=== PATIENT | female | born 1975 | race Caucasian/White ===

== ENCOUNTER → 2017-08-14 | Outpatient (REF) | LOC: ZLAB.WCH 14:39 | DX: Z01.89 Encounter for other specified special examinations (principal) ==

== ENCOUNTER 2018-05-24 20:16 | Emergency (ER) | payer SELFPAY ==
[~2018-05-24] VITALS: Ht 175.3 cm; Wt 58.2 kg
[2018-05-24 20:19] VITALS: BP 120/78; TEMP 98
[2018-05-24] MEDS ORDERED: ULTRAM 50MG TAB50 MG PO (20:50)
[2018-05-24] MEDS ORDERED: REXULTI0.5 MG PO (20:52)
[2018-05-24] MEDS ORDERED: BRINTELLIX5 PO (20:52)
[2018-05-24] MEDS ORDERED: PREDNISONE20 MG PO (20:54)
[2018-05-24 21:32] VITALS: PULSE 97
== END 2018-05-24 21:33 | disposition home or self-care (01) ==
LOC: COL.ER 20:16
DX: T78.40XA Allergy, unspecified, initial encounter (principal); R05 Cough; F32.9 Major depressive disorder, single episode, unspecified; Z87.442 Personal history of urinary calculi
CPT/HCPCS: J7512

== ENCOUNTER 2018-08-18 17:58 | Emergency (ER) | payer SELFPAY ==
[~2018-08-18] VITALS: Ht 175.3 cm; Wt 64.5 kg
[~2018-08-18 17:58] MED LIST: BRINTELLIX5 PO; PREDNISONE20 MG PO; REXULTI0.5 MG PO; ULTRAM 50MG TAB50 MG PO
[2018-08-18 18:04] VITALS: BP 141/80; TEMP 98.6
[2018-08-18] MEDS ORDERED: IPRATROPIUM BROM3 M1 IH (20:25)
[2018-08-18 20:35] VITALS: PULSE 121
== END 2018-08-18 21:00 | disposition home or self-care (01) ==
LOC: COL.ER 17:58
DX: J45.909 Unspecified asthma, uncomplicated (principal); F17.200 Nicotine dependence, unspecified, uncomplicated; Z79.52 Long term (current) use of systemic steroids

== ENCOUNTER 2018-08-26 16:37 | Emergency (ER) | payer SELFPAY ==
[~2018-08-26] VITALS: Ht 175.3 cm; Wt 64.5 kg
[~2018-08-26 16:37] MED LIST changes: +IPRATROPIUM BROM3 M1 IH
[2018-08-26 16:41] VITALS: TEMP 98.8
[2018-08-26 17:10] LABS: COLLECTION METHOD CLEAN CATCH
[2018-08-26 17:18] LABS: BASO % 0.2 % (0.0-2.0); EOS # 0.3 (0.0-0.7); EOS % 2.4 % (0-4.0); GRAN # 6.5 (1.4-6.5); GRAN % 58.4 % (42.2-75.2); HEMATOCRIT 43.4 % (37.0-47.0); HEMOGLOBIN 14.4 g/dl (12.5-16.0); LYMPH # 3.5 (1.2-3.4); LYMPH % 31.5 % (20.0-51.0); MEAN CELL VOLUME 90 fl (80.0-100.0); MEAN CORPUSCULAR HEMOGLOBIN 30 pg (27.0-31.0); MEAN CORPUSCULAR HGB CONC 33 g/dl (33.0-37.0); MEAN PLATELET VOLUME 9.5 fl (7.4-10.4); MONO # 0.8 (0.1-0.6); MONO % 6.7 % (1.7-9.3); PLATELET COUNT 246 K/mm3 (130-400); RED BLOOD COUNT 4.84 M/mm3 (4.10-5.30); REDCELL DISTRIBUTION WIDTH-CV 13.2 % (11.5-14.5)
[2018-08-26 17:24] LABS: ALBUMIN 3.8 gm/dL (3.5-5.0); BILIRUBIN,TOTAL 0.2 mg/dL (0.0-1.0); CALCIUM 9.2 mg/dL (8.4-10.2); CREATININE, serum 0.74 mg/dL (0.52-1.25); POTASSIUM 3.8 mmol/L (3.4-5.0); TOTAL PROTEIN 6.9 gm/dL (6.4-8.2)
[2018-08-26 17:29] LABS: MUCOUS Present /lpf; PH 5 (5-8); URINE APPEARANCE Clear; URINE BACTERIA None Seen /hpf; URINE BILIRUBIN Negative (NEGATIVE); URINE BLOOD Negative (NEGATIVE); URINE COLOR Yellow; URINE GLUCOSE Negative (NEGATIVE); URINE KETONE Negative (NEGATIVE); URINE LEUKOCYTE ESTERASE Negative (NEGATIVE); URINE NITRATE Negative (NEGATIVE); URINE PROTEIN(semi-quant) Negative (NEGATIVE); URINE RBC 0-2 /hpf; URINE UROBILINOGEN Negative (NEGATIVE)
[2018-08-26] MEDS ORDERED: NORCO 325 MG-51 TAB PO (18:24)
[2018-08-26] MEDS ORDERED: FLOMAX 0.40.4 MG/CAP PO (18:24)
[2018-08-26] MEDS ORDERED: ZOFRAN 4MG T4 MG/TAB PO (18:24)
[2018-08-26 18:45] VITALS: BP 114/74; PULSE 94
== END 2018-08-26 18:45 | disposition home or self-care (01) ==
LOC: COL.ER 16:37
PROVIDERS: Emergency Medicine
DX: R10.9 Unspecified abdominal pain (principal); J45.909 Unspecified asthma, uncomplicated; Z87.442 Personal history of urinary calculi; Z96.0 Presence of urogenital implants; Z79.52 Long term (current) use of systemic steroids
CPT/HCPCS: J1885; J2270; J2405; J7030

== ENCOUNTER → 2018-11-18 | Outpatient (CLI) | payer OTHER ==
[~2018-11-18] MED LIST changes: +FLOMAX 0.40.4 MG/CAP PO; +NORCO 325 MG-51 TAB PO; +ZOFRAN 4MG T4 MG/TAB PO
== END ==
LOC: COL.RAD 10:43
DX: Z02.71 Encounter for disability determination (principal); M41.86 Other forms of scoliosis, lumbar region; M47.816 Spondylosis without myelopathy or radiculopathy, lumbar region